=== PATIENT | male | born 1955 | race Caucasian/White ===

== ENCOUNTER 2023-11-13 09:26 | Emergency (ER) | payer OTHER, SELFPAY ==
[2023-11-13 09:30] VITALS: BP 104/79
[2023-11-13 09:32] LABS: Glucose - Point of Care 163 mg/dl (70-99)
--- NOTE | 2023-11-13 10:56 | ED.GENMED ---
History of Present Illness
General
Chief Complaint: Anxiety
Time Seen by Provider: 11/13/23 10:47
Travel History
Have you had any contact with someone who has COVID-19?: No
Do you have any symptoms of coronavirus? Fever > 100 degrees, chills, cough, shortness of breath, sore throat, loss of taste or smell, muscle aches, or headache?: No
History of Present Illness
History of Present Illness:
67-year-old male presents the emergency department for evaluation of 'seizures'. When asked to describe this the patient twitches his extremities and voluntarily and states 'see, that's a seizure'. He states ever since switching from cigarettes to
vaping he feels the symptoms are worsening. He also notes chronic bilateral lower extremity numbness that seems to be worsening. He currently does not have a primary care physician. Also notes that he was previously on chronic opioids and
benzodiazepines and stopped these within the past several months. Denies any suicidal or homicidal ideation
Review of Systems
Review of Systems
Allergies reviewed?: Yes
All Other Systems: ROS reviewed and negative except as documented in HPI and ROS
Phy Exam
Physical Exam
Physical Exam:
GEN: Well appearing, NAD, WDWN
Eyes: PERRLA, EOMs intact, no scleral icterus
HENT: NCAT, oral mucosa moist
Lungs: CTAB, no wheezes, rales, rhonchi, normal chest wall excursion
Cardiac: RRR, no M/R/G, no peripheral edema. Radial pulses 2+ bilat
Abdomen: S, NT, ND, NABS, no masses or hepatosplenomegaly
Neuro: AO x 3, no focal deficits to BUE/BLE. Patient appears tremulous, frequent twitching of the extremities appears to be voluntary
MSK: No gross deformity or ecchymosis.
Skin: No rashes, petechiae. Normal color, no pallor or jaundice.
Psych: Calm, cooperative, proper hygiene
Course
Orders/Labs/Results
Orders:
Orders
11/13/23 10:55
Electrocardiogram (*1) Urgent
Reason for Study: Fatigue / Weakness
EKG- Treatment ONCE
HydrOXYzine [Vistaril] 25 mg IM NOW STA
11/13/23 11:31
Complete Blood Count/With Diff Urgent
Comprehensive Metabolic Panel Urgent
11/13/23 12:34
Diazepam [Valium] 5 mg PO NOW STA
Abnormal Lab Results
11/13/23 11/13/23
09:31 11:31
WBC 11.0 H 10^3/uL
(4.8-10.8)
Absolute Neuts (auto) 7.2 H 10^3/uL
(1.4-6.5)
Absolute Monos (auto) 0.8 H 10^3/uL
(0.1-0.6)
BUN 23 H mg/dl
(9-20)
Glucose 131 H mg/dl
(70-99)
Total Bilirubin 1.8 H mg/dl
(0.2-1.3)
POC Glucose 163 H mg/dl
(70-99)
11/13/23 11:31
11/13/23 11:31
Vital Signs
Initial and Last Documented VS:
Initial Vital Signs
Temp Pulse Resp BP Pulse Ox
98.2 F 81 18 104/79 100
11/13/23 09:30 11/13/23 09:30 11/13/23 09:30 11/13/23 09:30 11/13/23 09:30
Last Documented Vital Signs
Temp Pulse Resp BP Pulse Ox
98.2 F 74 18 139/69 95
11/13/23 09:30 11/13/23 12:30 11/13/23 09:30 11/13/23 12:00 11/13/23 12:15
MDM/Problems Addressed
MDM/Problems Addressed:
Patient's workup was grossly unremarkable. Does not have any lateralizing deficits at this time. He is not displaying any objective sensory deficits of bilateral lower extremities. His twitching behavior does appear to be somewhat voluntary. He
does appear to be insistent on receiving benzodiazepines, small prescription provided as this may help to alleviate some of his symptoms. As far as the lower extremity neuropathic symptoms this may be diabetic neuropathy. Recommend he follow-up
with a family medicine residency clinic at the [facility]
*Critical Care Note
Total Time (30-74mins, 75-104mins- exclusive of procedures): Not Applicable
ED Attending Note
-
Portions of this chart may have been created with voice recognition software.� Occasional wrong word or��sound alike� substitutions may have occurred due to the inherent limitations of voice recognition software.
Discharge Plan
Departure
Patient Disposition: Home (Routine Discharge)
Date of Disposition: 11/13/23
Time of Disposition: 12:35
Patient with high blood pressure during this ER visit?: No
Discharge Problem:
Tremors of nervous system, Lower extremity neuropathy
Instructions: Tremor
Prescriptions:
New
diazepam 5 mg tablet
5 mg PO BID PRN (Reason: anxiety) Qty: 10 0RF
Referrals:
Krishna Ramon MD [Family Provider] -
Activity Restrictions/Additional Instructions:
[facility]
[address]
[place] [address]
[phone]
Interventions
Interventions:
*Risk Screen - Suicide Last Done: 11/13/23 09:30
*General Assessment Last Done: 11/13/23 09:30
*Neglect/Abuse Screening Last Done: 11/13/23 09:30
*ED COVID-19 Vaccine History Last Done: 11/13/23 09:30
*Nursing Disposition Last Done: 11/13/23 12:49
ED-Psychological Assessment Last Done: 11/13/23 10:30
Discharge Date and Time
Discharge Date/Time: 11/13/23 12:56
[2023-11-13 11:12] VITALS: BMI 19.3
[2023-11-13 11:25] VITALS: BP 127/66
--- NOTE | 2023-11-13 11:40 | EDRN ---
this ERRN attempted to administer ordered IM Med. the pt stated 'I am too scared to take something without knowing what it is.' this ROLLER MILL TENDER reviewed the medication information, uses, drug classes, side effects with this pt. the pt still refuses
ordered IM Hydroxyzine. ER NICKI Arriaga was notified of above
[2023-11-13 11:44] LABS: % Basophils 0.4 % (0-2); % Eosinophils 1.4 % (0-6); % Immature Granulocytes 0.2 % (0-0.5); % Lymphocytes 25.3 % (20.5-51.1); % Monocytes 7.3 % (1.7-9.3); % Neutrophils 65.4 % (42.2-75.2); Absolute Eosinophils 0.2 10^3/uL (0-0.7); Absolute Lymphocytes 2.8 10^3/uL (1.2-3.4); Absolute Monocytes 0.8 10^3/uL (0.1-0.6); Absolute Neutrophils 7.2 10^3/uL (1.4-6.5); Hematocrit 41.8 % (39.0-52.0); Mean Corp Hgb Conc. 35.9 g/dL (33.0-37.0); Mean Corpuscular Hgb 30.5 pg (27.0-31.0); Mean Corpuscular Volume 85.1 fL (80.0-94.0); Mean Platelet Volume 9.1 fL (7.4-10.4); Nucleated Red Blood Cells % 0 % (-); Platelet Count 266 10^3/uL (130-400); Red Blood Cell Count 4.91 10^6/uL (4.70-6.10); Red Cell Dist. Width 12.4 % (11.5-14.5)
[2023-11-13 11:58] LABS: ALT (SGPT) 27 U/L (0-50); AST (SGOT) 33 U/L (17-59); Albumin 4.7 g/dl (3.5-5.0); Alkaline Phosphatase 86 U/L (38-126); Blood Urea Nitrogen 23 mg/dl (9-20); Carbon Dioxide 26 mmol/L (22-30); Chloride 103 mmol/L (98-107); Estimated Creatinine Clearance 68 ml/min; Glucose 131 mg/dl (70-99); Potassium 4.7 mmol/L (3.5-5.1); Sodium 135 mmol/L (135-145); Total Bilirubin 1.8 mg/dl (0.2-1.3); Total Protein 7.7 g/dl (6.3-8.2); eGFR > 60.00
[2023-11-13 12:00] VITALS: BP 139/69
[2023-11-13] MEDS: VALIUM 5 MG PO (12:48)
== END 2023-11-13 12:56 | disposition home or self-care (01) ==
LOC: EMR 09:26
PROVIDERS: Physician Assistant; EMERGENCY PHYSICIAN Emergency Medicine; FAMILY PHYSICIAN Internal Medicine
DX: R25.1 Tremor, unspecified (principal); G57.93 Unspecified mononeuropathy of bilateral lower limbs
CPT/HCPCS: 99284; 96372; 80053; 82962; 85025; 93005

== ENCOUNTER 2024-06-15 15:53 | Inpatient (IN) | payer OTHER, SELFPAY ==
[2024-06-15] VITALS (12 sets, daily range): BP systolic 111–213; BP diastolic 56–122; BMI 23.9
--- NOTE | 2024-06-15 11:49 | ED.GENMED ---
ED Provider Triage
<Shiela Smith PA-C - Last Filed: 06/15/24 11:53>
-
Patient seen by provider in Triage?: Seen in Triage
Attestation: A medical screening examination has been initiated by a qualified medical provider. Based on the assessment performed at this time, it has been determined that an emergent medical condition may exist and the patient has been informed
that further medical evaluation and possible additional diagnostic testing may be needed.
HPI: 68yoM here with generalized weakness, SOB, pain all over x several months. Hx of diabetes, not on medications, has not checked sugar in several years. Has not seen PCP since 2021.
GENERAL: Alert , in no apparent distress
EYE: No visual abnormalities.
NECK: Trachea midline
ENT: No visible abnormalities.
LUNGS: No acute respiratory distress
NEUROLOGICAL: Alert and oriented
SKIN: Skin intact. No visible changes.
MUSCULOSKELETAL: Moving extremities normally
PSYCH: Normal and appropriate interaction.
This is a medical evaluation conducted in person to initiate diagnostic evaluation and provide initial therapeutics. Please see further documentation by the treating clinician.
Cardiac labs, magnesium, EKG, and CXR ordered.
History of Present Illness
<Shiela Smith PA-C - Last Filed: 06/15/24 11:53>
General
Chief Complaint: Weakness
Time Seen by Provider: 06/15/24 14:01
<Edmond Magaña PA-C - Last Filed: 06/15/24 14:45>
General
Source: patient
History of Present Illness
History of Present Illness:
68-year-old male with history of tqd-airtacz-kaclqcsse diabetes noncompliant also history of hypertension has not seen doctor in years presents with generalized weakness numbness to his bilateral feet and hands and excessive thirst. He denies
vision change she does feel that he is having trouble focusing at times. No chest pain. No shortness of breath. No fever. No other complaints at this time
Phy Exam
<Edmond Magaña PA-C - Last Filed: 06/15/24 14:45>
Physical Exam
Physical Exam:
General: Well-appearing male no acute respiratory distress
HEENT: Normocephalic atraumatic
Heart: Tachycardic but regular
Lungs: Clear no wheeze
Abdomen soft nontender nondistended no guarding or
Extremities: No cyanosis.
Course
<Shiela Smith PA-C - Last Filed: 06/15/24 11:53>
Orders/Labs/Results
Orders:
Orders
06/15/24 11:53
Electrocardiogram (*1) Urgent
Reason for Study: Shortness of Breath
EKG- Treatment ONCE
CR Chest - 2 Views Urgent
Comment:
Reason For Exam: SOB
06/15/24 11:59
Complete Blood Count/With Diff Urgent
Comprehensive Metabolic Panel Urgent
Magnesium Urgent
Troponin I Urgent
06/15/24 14:13
0.9% Sodium Chloride 1000 ml [Nss] 1,000 ml IV BOLUS
06/15/24 14:27
0.9% Sodium Chloride 1000 ml [Nss] 1,000 ml IV BOLUS
06/15/24 14:32
Insulin Human Regular [Novolin R] 7 units IV NOW STA
Labetalol HCl [Trandate] 10 mg IV NOW STA
Abnormal Lab Results
06/15/24 06/15/24
11:59 14:05
RBC 4.67 L 10^6/uL
(4.70-6.10)
Sodium 126 L mmol/L
(135-145)
Chloride 90 L mmol/L
(98-107)
BUN 33 H mg/dl
(9-20)
Glucose 809 H* mg/dl
(70-99)
ALT 55 H U/L
(0-50)
Alkaline Phosphatase 180 H U/L
(38-126)
POC Glucose > 600 H* mg/dl
(70-99)
06/15/24 11:59
06/15/24 11:59
Vital Signs
Initial and Last Documented VS:
Initial Vital Signs
Temp Pulse Resp BP Pulse Ox
97.5 F 94 20 162/105 100
06/15/24 11:47 06/15/24 11:47 06/15/24 11:47 06/15/24 11:47 06/15/24 11:47
Last Documented Vital Signs
Temp Pulse Resp BP Pulse Ox
98.5 F 102 20 213/122 98
06/15/24 14:09 06/15/24 14:11 06/15/24 14:11 06/15/24 14:09 06/15/24 14:11
<Edmond Magaña PA-C - Last Filed: 06/15/24 14:45>
Orders/Labs/Results
Orders:
Orders
06/15/24 11:53
Electrocardiogram (*1) Urgent
Reason for Study: Shortness of Breath
EKG- Treatment ONCE
CR Chest - 2 Views Urgent
Comment:
Reason For Exam: SOB
06/15/24 11:59
Complete Blood Count/With Diff Urgent
Comprehensive Metabolic Panel Urgent
Magnesium Urgent
Troponin I Urgent
06/15/24 14:13
0.9% Sodium Chloride 1000 ml [Nss] 1,000 ml IV BOLUS
06/15/24 14:27
0.9% Sodium Chloride 1000 ml [Nss] 1,000 ml IV BOLUS
06/15/24 14:32
Insulin Human Regular [Novolin R] 7 units IV NOW STA
Labetalol HCl [Trandate] 10 mg IV NOW STA
Abnormal Lab Results
06/15/24 06/15/24
11:59 14:05
RBC 4.67 L 10^6/uL
(4.70-6.10)
Sodium 126 L mmol/L
(135-145)
Chloride 90 L mmol/L
(98-107)
BUN 33 H mg/dl
(9-20)
Glucose 809 H* mg/dl
(70-99)
ALT 55 H U/L
(0-50)
Alkaline Phosphatase 180 H U/L
(38-126)
POC Glucose > 600 H* mg/dl
(70-99)
06/15/24 11:59
06/15/24 11:59
Vital Signs
Initial and Last Documented VS:
Initial Vital Signs
Temp Pulse Resp BP Pulse Ox
97.5 F 94 20 162/105 100
06/15/24 11:47 06/15/24 11:47 06/15/24 11:47 06/15/24 11:47 06/15/24 11:47
Last Documented Vital Signs
Temp Pulse Resp BP Pulse Ox
98.5 F 102 20 213/122 98
06/15/24 14:09 06/15/24 14:11 06/15/24 14:11 06/15/24 14:09 06/15/24 14:11
<Edmond Magaña PA-C - Last Filed: 06/15/24 14:45>
MDM/Problems Addressed
Differential Diagnosis Includes:
Patient with generalized weakness paresthesias excessive thirst. Consider hyperglycemia versus hypertension versus electrolyte abnormality
Labs demonstrate a serum glucose of 809 with pseudohyponatremia of 126. Blood pressure is 213/122. Patient has been noncompliant with his medicines the last 2 years. Will order IV fluids labetalol as well as IV insulin. Will admit to hospital
for hyperglycemia without acidosis and hypertension.
<Edmond Magaña PA-C - Last Filed: 06/15/24 14:45>
*Critical Care Note
Total Time (30-74mins, 75-104mins- exclusive of procedures): Not Applicable
ED Attending Note
<Shiela Smith PA-C - Last Filed: 06/15/24 11:53>
-
Portions of this chart may have been created with voice recognition software.� Occasional wrong word or��sound alike� substitutions may have occurred due to the inherent limitations of voice recognition software.
Discharge Plan
Departure
Patient Disposition: Admit
Date of Disposition: 06/15/24
Time of Disposition: 14:45
Admit to: Telemetry
Presentation/result/management discussed w/ accepting MD/DO: Hospitalist
Discharge Problem:
Hypertension
Prescriptions:
No Action
diazepam 5 mg tablet
5 mg PO BID PRN (Reason: anxiety) Qty: 10 0RF
Referrals:
NONE,* [Family Provider] -
Interventions
Interventions:
*Risk Screen - Suicide Last Done: 06/15/24 11:47
*General Assessment Last Done: 06/15/24 14:09
*Neglect/Abuse Screening Last Done: 06/15/24 11:47
ED- Fall Risk Assessment Last Done: 06/15/24 14:09
*ED COVID-19 Vaccine History Last Done: 06/15/24 11:47
ED- Cardiac Assessment Last Done: 06/15/24 14:09
ED- Neurological Assessment Last Done: 06/15/24 14:09
ED- Pulmonary Assessment Last Done: 06/15/24 14:09
Discharge Date and Time
Print Language: MALTESE
[2024-06-15 12:21] LABS: % Basophils 0.4 % (0-2); % Eosinophils 1.1 % (0-6); % Immature Granulocytes 0.3 % (0-0.5); % Lymphocytes 25.6 % (20.5-51.1); % Monocytes 7.8 % (1.7-9.3); % Neutrophils 64.8 % (42.2-75.2); Absolute Eosinophils 0.1 10^3/uL (0-0.7); Absolute Lymphocytes 1.9 10^3/uL (1.2-3.4); Absolute Monocytes 0.6 10^3/uL (0.1-0.6); Absolute Neutrophils 4.8 10^3/uL (1.4-6.5); Hemoglobin 13.7 g/dL (13.0-18.0); Mean Corp Hgb Conc. 34.3 g/dL (33.0-37.0); Mean Corpuscular Hgb 29.3 pg (27.0-31.0); Mean Corpuscular Volume 85.7 fL (80.0-94.0); Mean Platelet Volume 10.4 fL (7.4-10.4); Nucleated Red Blood Cells % 0 % (-); Platelet Count 252 10^3/uL (130-400); Red Blood Cell Count 4.67 10^6/uL (4.70-6.10); Red Cell Dist. Width 12.2 % (11.5-14.5); White Blood Cell Count 7.5 10^3/uL (4.8-10.8)
[2024-06-15 12:41] LABS: Troponin I < 0.012 ng/ml
[2024-06-15 12:45] LABS: ALT (SGPT) 55 U/L (0-50); AST (SGOT) 37 U/L (17-59); Alkaline Phosphatase 180 U/L (38-126); Blood Urea Nitrogen 33 mg/dl (9-20); Calcium 9.4 mg/dl (8.4-10.2); Carbon Dioxide 25 mmol/L (22-30); Chloride 90 mmol/L (98-107); Glucose 809 mg/dl (70-99); Potassium 5.1 mmol/L (3.5-5.1); Sodium 126 mmol/L (135-145); Total Bilirubin 0.7 mg/dl (0.2-1.3); Total Protein 6.7 g/dl (6.3-8.2); eGFR > 60.00
[2024-06-15 14:07] LABS: Glucose - Point of Care > 600 mg/dl (70-99)
--- NOTE | 2024-06-15 14:09 | EDRN ---
blood sugar was taken and was RR HIGH, per Dean CACERES, a venous glucose is not to be done yet
--- NOTE | 2024-06-15 14:11 | EDRN ---
Dean CACERES currently at the pts bedside, this RN found the pt drinking regular root beer, this RN notified the pt how high his blood sugar was when he came in
[2024-06-15] MEDS: NSS 1000 IV ×2 (14:20→14:27)
[2024-06-15] MEDS: NOVOLIN R 7 UNITS IV (14:45)
[2024-06-15] MEDS: TRANDATE 10 MG IV (14:50)
--- NOTE | 2024-06-15 14:53 | EDRN ---
Labetalol IV administered for the pts elevated blood pressure, Insulin IV administered, all per Dean CACERES's orders
--- NOTE | 2024-06-15 15:08 | HPS.HSE ---
Family Physician
-
Family Physician: * NONE
Chief Complaint
-
Weakness
History of Present Illness
Patient is a 68-year-old male with PHM of NIDDM and Hypertension who states he has not seen a doctor in over 2 years. He was diagnosed with DMII in 2013, initially followed a good diet and exercise and stopped prescribed medication on his own
stating his sugars were controlled. Patient presented to [facility] with c/o weakness and having feeling of severe dizziness every time he moved. He reports this has been the norm for months and he finally decided he should find out what was
going on. He confirms that dizziness was accompanied by nausea and feeling of near syncope. He denies any fever, chills, cough, shortness of breath, chest pain, vomiting, constipation, diarrhea or urinary symptoms.
Medical History
Past Medical History
Past Medical History: Reports Other
Additional Past Medical History:
NIDDM
HTN
Past Surgical History: Reports None
Social History
Tobacco: Vaping (1-2 years)
Alcohol: Former (many years since he stopped drinking)
Drug: Former User (quit multiple recreational drugs years ago, did state he had extensive abuse of cocaine)
Personal: Single
Living: With Family
Employment: Not Employed
Family History
Family History: Not pertinent
Allergies / Home Medications
Allergies reflects when Allergies were last updated in [employer].
Home Medications with original date entered in [employer]
Allergy/Medication List:
Allergies
Allergy/AdvReac Type Severity Reaction Status Date / Time
No Known Allergies Allergy Verified 06/15/24 11:53
Home Medications Table - record
�Medication �Instructions �Recorded �Confirmed
pseudoephedrine HCl 30 mg tablet 30 mg PO DAILYPRN PRN post nasal 06/15/24 06/15/24
(Sudafed) drip
telmisartan 80 mg tablet 80 mg PO DAILYPRN PRN high blood 06/15/24 06/15/24
pressure
Review of Systems
-
History Source: Patient
Constitutional: Reports Other (generalized weakness, dizziness)
EENT: Reports No Symptoms
Respiratory: Reports No Symptoms
Cardiac: Reports No Symptoms
Abdomen/GI: Reports Nausea
: Reports No Symptoms
Musculoskeletal: Reports No Symptoms
Skin: Reports No Symptoms
Neurological: Reports Dizzy and Weakness
Endocrine: Reports No Symptoms
Hematologic/Lymphatic: Reports No Symptoms
Psych: Reports No Symptoms
Physical Exam
Vital Signs
Vital Signs
Temp Pulse Resp BP Pulse Ox
98.5 F 83 20 179/93 98
06/15/24 14:09 06/15/24 14:50 06/15/24 14:11 06/15/24 14:50 06/15/24 14:11
Physical Exam
General: Well Developed, Well Nourished, No Apparent Distress, Comfortable and Conversant
HEENT: NormoCephalic, Moist mucous membranes, Atraumatic, PERRLA, [place] Conjunctivae, Nose Appears Normal and Ears Appear Normal
Respiratory: Clear and Non Labored Respirations; No Wheezes, Rales, Rhonchi or Crackles
Cardiac: S1/S2 and Regular Rhythm; No Murmur, Rub or Gallop
Breast: Deferred by me
GI: Soft, Non Tender, Non Distended and Normal Bowel Sounds; No Organomegaly
Rectal: Deferred by Provider
Genito-urinary: Deferred by me
Musculoskeletal: No Clubbing, No Cyanosis and No Edema
Skin: Warm, Dry and IV/Catheter Site; No Rash
Neuro: Awake, Alert, AO x 3, Nonfocal/grossly intact and Cranial Nerves Intact
Hematologic/Lymphatic: No Lymphadenopathy
Psych: Calm
Laboratory Results
-
06/15/24 11:59
06/15/24 11:59
Laboratory Results
Total Bilirubin 0.7 mg/dl (0.2-1.3) 06/15/24 11:59
AST 37 U/L (17-59) 06/15/24 11:59
ALT 55 U/L (0-50) H 06/15/24 11:59
Alkaline Phosphatase 180 U/L (38-126) H 06/15/24 11:59
Troponin I < 0.012 ng/ml 06/15/24 11:59
Data Reviewed
-
Lab Data: Labs Reviewed by me (Glucose 809, Na+ 126)
Impression/Plan
-
IMPRESSION/PLAN:
#NIDDM
- Glucose 809
- Consult DM educator
- Start Lantus 10 units HS
- SSI with accuchecks
- Monitor BMP
#Hypertension
- Continue Telmisartan daily
#Nicotine dependency
- Encouraged cessation
- effects all aspects of care
DNR
DVT Px: SCDs
[2024-06-15 15:16] LABS: Glucose - Point of Care 417 mg/dl (70-99)
--- NOTE | 2024-06-15 15:24 | EDRN ---
blood glucose checked and was RR HIGH, this RN bismark and send a venous glucose
--- NOTE | 2024-06-15 15:24 | EDRN ---
Hospitalist currently a the pts bedside
[2024-06-15 15:27] LABS: Urine Albumin Negative (Neg - Trace); Urine Bilirubin Negative (Negative); Urine Character Clear (Clear); Urine Color Yellow; Urine Glucose 3+ (Negative); Urine Ketone Negative (Negative); Urine Leukocyte Negative (Negative); Urine Nitrite Negative (Negative); Urine Occult Blood Negative (Negative); Urine Urobilinogen Negative (Neg - 1+)
[2024-06-15 15:44] LABS: Glucose 271 mg/dl (70-99)
--- NOTE | 2024-06-15 15:58 | W.PN.UPDATE ---
Addendum entered and electronically signed by Selin Walters MD 06/15/24 22:44:
Blood sugar down to 47 but now back to 247. Will give Lantus 10 units daily.
Original Note:
Update Note
Progress Note Update
This is an addendum to the H&P written by Helene Adam on 06/15/2024.� Patient seen and examined independently with MEDICAL CODING AUDITOR.
68-year-old male past medical history of diabetes, hypertension presenting with numbness of bilateral feet and hands and excessive thirst.
Blood pressure as high as 213/122.� Blood sugar of 800.� Pseudohyponatremia from hyperglycemia.� Labs otherwise unremarkable without metabolic acidosis and anion gap of 11.
Presentation consistent with hyperosmolar hyperglycemic syndrome.� Blood sugar improving to 400 after 7 units IV Humulin given.� Diabetic diet, IV fluids with normal saline given.� Start Lantus 10 units.� Check A1c.
Also with hypertensive urgency.� Blood pressure completely improved.� Resume telmisartan 80 mg daily.
[2024-06-15 16:30] LABS: Glucose - Point of Care 47 mg/dl (70-99)
[2024-06-15 16:30] LABS: Glucose - Point of Care 50 mg/dl (70-99)
[2024-06-15] MEDS: DEXTROSE 50% SYRINGE 12.5 GRAMS IV (16:36)
--- NOTE | 2024-06-15 16:38 | EDRN ---
this RN checked the pts blood sugar and it was 47, this RN then rechecked the pts blood sugar and it was 50, per providers orders Dextrose IV was administered, no c/o dizziness, no diaphoresis, VS WNL, will continue to monitor the pt closely
[2024-06-15 16:53] LABS: Glucose - Point of Care 195 mg/dl (70-99)
--- NOTE | 2024-06-15 16:54 | EDRN ---
this RN rechecked the pts blood sugar and it is now 195, provider notified, VS WNL, no complaints offered, will continue to monitor the pt closely
[2024-06-15 17:15] LABS: Glucose - Point of Care 217 mg/dl (70-99)
--- NOTE | 2024-06-15 17:15 | EDRN ---
the pts blood sugar was checked again and was 217, provider notified
--- NOTE | 2024-06-15 17:25 | EDRN ---
this RN called the receiving unit and notified them that paper report was going to be tubed up
[2024-06-15] MEDS: NOVOLOG FLEXPEN-MODERATE RESISTANCE SC (18:16)
[2024-06-15 18:18] LABS: Glucose - Point of Care 79 mg/dl (70-99)
--- NOTE | 2024-06-15 18:30 | PTCARENOTE ---
Received patient from ED via stretcher. AAOx3, assisted to bed. Assessed and oriented to room. Patient ordered DNR but states he would like to be a full code. Code status changed by Nurse Practitioner . Accu check 79. Orders to hold 1800 Lantus by
Nurse Practitioner. Call caballero in close reach.
[2024-06-15 19:41] LABS: Glucose - Point of Care 256 mg/dl (70-99)
[2024-06-15 20:55] LABS: Glucose - Point of Care 274 mg/dl (70-99)
[2024-06-15 21:33] LABS: Glucose - Point of Care 297 mg/dl (70-99)
[2024-06-15 23:01] LABS: Glucose - Point of Care 315 mg/dl (70-99)
--- NOTE | 2024-06-15 23:10 | PTCARENOTE ---
pt stated that he felt warm, lightheaded, sob, stuffy, thirsty, and has blurred vision. pt states this has been going on for awhile. at night he has been sleeping in a sun room where it gets really cold, and taking the occasional Sudafed. Oxygen is
95% on room air. pt stating 'he can't breathe' - placed on 1L of for comfort. pt is flush, but temp =98.3, zk=583/64, p=77. provided pt with cool wash clothe and ice pack. blood [id number] (had finished dinner about 30mins ago.) pt denies having the
flu or covid, but never tested. pt constantly going to the bathroom - bladder scan post void residual 30ml. informed COVERING MACHINE OPERATOR Hephziba- obtained order for lantus , and nasal spray.
pt stated that he felt the same throughout the night. accuchecks obtained, and COVERING MACHINE OPERATOR updated.
[2024-06-15] MEDS: OCEAN, SALINE MIST 2 SPRAYS NASAL (23:48)
[2024-06-15] MEDS: LANTUS 0.1 UNITS SC (23:48)
[2024-06-15 23:51] LABS: Glucose - Point of Care 296 mg/dl (70-99)
[2024-06-16 02:45] LABS: Glucose - Point of Care 249 mg/dl (70-99)
[2024-06-16 05:44] LABS: Glucose - Point of Care 262 mg/dl (70-99)
[2024-06-16 06:57] LABS: Glucose - Point of Care 249 mg/dl (70-99)
[2024-06-16 07:10] VITALS: BP 105/71
[2024-06-16] MEDS: NOVOLOG FLEXPEN-MODERATE RESISTANCE SC (07:30)
[2024-06-16 09:09] LABS: Hematocrit 35.6 % (39.0-52.0); Hemoglobin 12.4 g/dL (13.0-18.0); Mean Corp Hgb Conc. 34.8 g/dL (33.0-37.0); Mean Corpuscular Hgb 29.3 pg (27.0-31.0); Mean Corpuscular Volume 84.2 fL (80.0-94.0); Mean Platelet Volume 10.2 fL (7.4-10.4); Platelet Count 239 10^3/uL (130-400); Red Blood Cell Count 4.23 10^6/uL (4.70-6.10); Red Cell Dist. Width 12.2 % (11.5-14.5); White Blood Cell Count 10.2 10^3/uL (4.8-10.8)
[2024-06-16] MEDS: COZAAR 100 MG PO (09:11)
[2024-06-16 09:36] LABS: Troponin I < 0.012 ng/ml
[2024-06-16 10:56] LABS: Glycohemoglobin (HgbA1c) 14.6 % (4.0-5.6)
[2024-06-16 10:59] LABS: Glucose - Point of Care 273 mg/dl (70-99)
[2024-06-16] MEDS: NOVOLOG FLEXPEN 2 UNITS SC (11:00)
[2024-06-16] MEDS: NOVOLOG FLEXPEN-MODERATE RESISTANCE 5 UNITS SC ×2 (11:00→16:47)
[2024-06-16 11:32] LABS: Blood Urea Nitrogen 18 mg/dl (9-20); Calcium 8.9 mg/dl (8.4-10.2); Carbon Dioxide 24 mmol/L (22-30); Chloride 99 mmol/L (98-107); Estimated Creatinine Clearance 87 ml/min; Glucose 242 mg/dl (70-99); Potassium 4.6 mmol/L (3.5-5.1); Sodium 133 mmol/L (135-145); eGFR > 60.00
[2024-06-16 11:47] LABS: Glucose - Point of Care 369 mg/dl (70-99)
--- NOTE | 2024-06-16 12:03 | PN.DE ---
Diabetes Education
- -
06/16/2024 Diabetes EDUCATION Consult
Patient admitted 06/15 with numbness of feet and hands and extreme thirst. PMH HTN, diabetes taking no medication. recreational multiple drug use including cocaine.
Patient is awake alert and oriented but very agitated. Picking at everything, spilled water on bedside table and bed, emptying water into basin. Hyper-focused on wanting to have a meal. He states he is dehydrated and needs food.
Reassured him as soon as appropriate he would be able to have a meal.
I attempted to teach patient a meter but he really could not focus on the steps. I demonstrated each step. I will return tomorrow to instruct on steps to test, times to test and target range.
Discussed with patients nurse.
Will follow to reinforce meter use.
[2024-06-16 15:08] LABS: Glucose - Point of Care 389 mg/dl (70-99)
[2024-06-16 15:12] VITALS: BP 114/55
[2024-06-16] MEDS: NOVOLOG FLEXPEN 12 UNITS SC (15:25)
--- NOTE | 2024-06-16 16:29 | W.PN.HOSP.TC ---
Today's Communication/Plan
-
needs placement
as long as sugars are ok can leave tomorrow
Assessment / Plan
Assessment / Plan
61 with diabetes and hypertension with weakness dizziness was found to have bradycardia hyper pressure and also sugars over 800
CVS: S1-S2 normal
Chest: CTA B/L
Abdomen: Soft, NT / Bowel sounds present
Extremities: No edema, normal pulses
SAUSAGE MAKER: Non focal exam
# Diabetes-not on any meds at present
Glucose was over 800 on admission consistent with hyperosmolar hyperglycemic state
Diabetic education and dietary consultation
Lantus and NovoLog insulin. 15 units and 8 units AC respectively
Hemoglobin A1c 14.6
Accu-Cheks and sliding scale coverage
# Hypertension with hypertensive urgency on admission
Telmisartan to be continued
It appears patient was taking as needed
Pseudoephedrine could have also raise her blood pressure as outpatient
# Pseudo hypernatremia secondary to hyperglycemia
# Elevated LFTs-repeat
# T inversion in inferior leads. Troponin negative .Get one more set. OP ECHO
# Nicotine dependency with vaping cessation counseling
# History of migraines
# DVT prophylaxis-Lovenox
# Full code
D/W Case management
Anticipated Discharge: Within 24 hours
Subjective/Interval History
-
Date of Service: June 16, 2024
Objective Data
-
Labs:
Laboratory Results
06/16/24
08:17
WBC 10.2
Hgb 12.4 L
Hct 35.6 L
Plt Count 239
Sodium 133 L
Potassium 4.6
Chloride 99
Carbon Dioxide 24
BUN 18
Creatinine 0.8
Glucose 242 H
Calcium 8.9
Vital Signs:
Vital Signs
Temp Pulse Resp BP Pulse Ox
98.3 F 69 18 114/55 97
06/16/24 15:12 06/16/24 15:12 06/16/24 15:12 06/16/24 15:12 06/16/24 15:12
I&O
06/15/24 06/16/24 06/17/24
06:59 06:59 06:59
Intake Total 1360 / 1360
Balance 1360 / 1360
[2024-06-16 16:35] LABS: Glucose - Point of Care 250 mg/dl (70-99)
[2024-06-16] MEDS: GLUCOPHAGE 850 MG PO (16:46)
[2024-06-16] MEDS: NOVOLOG FLEXPEN 8 UNITS SC (16:47)
[2024-06-16 19:32] LABS: Glucose - Point of Care 119 mg/dl (70-99)
[2024-06-16 21:43] LABS: Glucose - Point of Care 103 mg/dl (70-99)
[2024-06-16 23:54] VITALS: BP 117/54
--- NOTE | 2024-06-17 06:33 | W.PN.UPDATE ---
Update Note
Progress Note Update
Reported by the nursing staff that the patient in the hallway, refusing to go inside his room, stating that he in a panic attack, and requesting Valium. Went to assess the patient, he is sitting on a chair in the front of his room crossing his
legs, no signs of anxiety/ fear/ no tremors/ no sweating. Patient looks calm. Vital signs within normal limits including heart rate. Patient able to hold conversation with no problem, stating the he in panic attack/ need to sleep and requesting
Valium. This documentation writer offered melatonin, but the patient refused.
[2024-06-17 07:43] LABS: Glucose - Point of Care 239 mg/dl (70-99)
[2024-06-17 07:48] LABS: Hematocrit 36.6 % (39.0-52.0); Hemoglobin 12.5 g/dL (13.0-18.0); Mean Corp Hgb Conc. 34.2 g/dL (33.0-37.0); Mean Corpuscular Hgb 28.6 pg (27.0-31.0); Mean Corpuscular Volume 83.8 fL (80.0-94.0); Mean Platelet Volume 9.6 fL (7.4-10.4); Platelet Count 245 10^3/uL (130-400); Red Blood Cell Count 4.37 10^6/uL (4.70-6.10); Red Cell Dist. Width 12.6 % (11.5-14.5); White Blood Cell Count 9.7 10^3/uL (4.8-10.8)
[2024-06-17 07:52] VITALS: BP 123/59
[2024-06-17 08:18] LABS: Blood Urea Nitrogen 18 mg/dl (9-20); Calcium 9.1 mg/dl (8.4-10.2); Carbon Dioxide 26 mmol/L (22-30); Chloride 101 mmol/L (98-107); Estimated Creatinine Clearance 87 ml/min; Glucose 218 mg/dl (70-99); Magnesium 2.1 mg/dl (1.6-2.3); Potassium 4.9 mmol/L (3.5-5.1); Sodium 135 mmol/L (135-145); eGFR > 60.00
[2024-06-17] MEDS: NOVOLOG FLEXPEN-MODERATE RESISTANCE 3 UNITS SC ×2 (08:33→12:17)
[2024-06-17] MEDS: GLUCOPHAGE 850 MG PO ×2 (08:33→18:37)
[2024-06-17] MEDS: COZAAR PO (08:37)
[2024-06-17] MEDS: NOVOLOG FLEXPEN SC ×2 (08:44→18:29)
[2024-06-17 08:58] LABS: Vitamin B12 529 pg/ml (239-931)
[2024-06-17 10:59] LABS: Glucose - Point of Care 235 mg/dl (70-99)
--- NOTE | 2024-06-17 11:13 | W.PN.HOSP.TC ---
Today's Communication/Plan
-
placement
insulin adjusted.
Assessment / Plan
Assessment / Plan
61 with diabetes and hypertension with weakness dizziness was found to have bradycardia hyper pressure and also sugars over 800
CVS: S1-S2 normal
Chest: CTA B/L
Abdomen: Soft, NT / Bowel sounds present
Extremities: No edema, normal pulses
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
He C/O Mild dizziness - likely from sugars . Check orthostatics
# Diabetes-not on any meds at present
Glucose was over 800 on admission consistent with hyperosmolar hyperglycemic state
Diabetic education and dietary consultation
Lantus and NovoLog insulin. 20 units and 8 units AC respectively
Hemoglobin A1c 14.6
Accu-Cheks and sliding scale coverage
# Hypertension with hypertensive urgency on admission
Telmisartan to be continued
It appears patient was taking as needed
Pseudoephedrine could have also raise her blood pressure as outpatient
# Pseudo hypernatremia secondary to hyperglycemia
# Elevated LFTs-repeat
# T inversion in inferior leads. Troponin negative . Check echo
# Nicotine dependency with vaping cessation counseling
# History of migraines
# DVT prophylaxis-Lovenox
# Full code
D/W RN
Called brother went to message
D/W Case management
Anticipated Discharge: Within 24 hours
Subjective/Interval History
-
Date of Service: June 17, 2024
Objective Data
-
Labs:
Laboratory Results
06/17/24
07:29
WBC 9.7
Hgb 12.5 L
Hct 36.6 L
Plt Count 245
Sodium 135
Potassium 4.9
Chloride 101
Carbon Dioxide 26
BUN 18
Creatinine 0.8
Glucose 218 H
Calcium 9.1
Vital Signs:
Vital Signs
Temp Pulse Resp BP Pulse Ox
98.1 F 70 18 123/59 97
06/17/24 07:52 06/17/24 07:52 06/17/24 07:52 06/17/24 07:52 06/17/24 07:52
I&O
06/16/24 06/17/24 06/18/24
06:59 06:59 06:59
Intake Total 1360 / 1360 1200 / 1200
Balance 1360 / 1360 1200 / 1200
[2024-06-17 11:22] VITALS: BP 111/61; BP 130/56; BP 87/54; PULSE 82; PULSE 88; PULSE 93
[2024-06-17 11:46] LABS: Glucose - Point of Care 228 mg/dl (70-99)
[2024-06-17 11:56] LABS: ALT (SGPT) 50 U/L (0-50); AST (SGOT) 41 U/L (17-59); Albumin 3.4 g/dl (3.5-5.0); Alkaline Phosphatase 106 U/L (38-126); Direct Bilirubin 0.2 mg/dl (0.0-0.4); Total Bilirubin 0.8 mg/dl (0.2-1.3); Total Protein 6.1 g/dl (6.3-8.2)
[2024-06-17] MEDS: NSS 250 IV (12:09)
[2024-06-17] MEDS: NOVOLOG FLEXPEN 8 UNITS SC (12:17)
[2024-06-17 15:22] VITALS: BP 105/66
--- NOTE | 2024-06-17 16:15 | CM ---
CM met with Jann and his brother this afternoon to discuss transfer to SNF. [facility] in [place] [facility] offered admission; financial information will be required, however per Jann's brother, there are
no assets and Jann has not filed a tax return in many years, if ever. Jann's home was sold at [place] and he used the money to stay at a motel until the money ran out.
CM to follow up with [facility] and [facility] in [place]. Jann's brother is taking the car home with him; Jann is aware and agreeable to this.
Plan: SNF transfer with terminal block assembler care pending financial review
[2024-06-17 16:48] LABS: Glucose - Point of Care 112 mg/dl (70-99)
[2024-06-17] MEDS: NOVOLOG FLEXPEN-MODERATE RESISTANCE SC (16:58)
[2024-06-17 18:08] VITALS: BP 123/60; BP 128/61; BP 95/60; PULSE 88; PULSE 91; PULSE 92
[2024-06-17] MEDS: NOVOLOG FLEXPEN 6 UNITS SC (18:38)
[2024-06-17 21:33] LABS: Glucose - Point of Care 133 mg/dl (70-99)
[2024-06-17] MEDS: LANTUS 0.2 UNITS SC (22:20)
[2024-06-17 23:27] VITALS: BP 129/64
[2024-06-18 03:58] LABS: Glucose - Point of Care 98 mg/dl (70-99)
[2024-06-18 07:10] VITALS: BP 128/69
[2024-06-18 07:10] LABS: Glucose - Point of Care 91 mg/dl (70-99)
[2024-06-18 08:16] LABS: Hematocrit 37.1 % (39.0-52.0); Hemoglobin 12.6 g/dL (13.0-18.0); Mean Corpuscular Hgb 29.2 pg (27.0-31.0); Mean Corpuscular Volume 86.1 fL (80.0-94.0); Mean Platelet Volume 10.1 fL (7.4-10.4); Platelet Count 221 10^3/uL (130-400); Red Blood Cell Count 4.31 10^6/uL (4.70-6.10); Red Cell Dist. Width 12.5 % (11.5-14.5); White Blood Cell Count 8.5 10^3/uL (4.8-10.8)
[2024-06-18 09:12] LABS: Blood Urea Nitrogen 19 mg/dl (9-20); Calcium 9.1 mg/dl (8.4-10.2); Carbon Dioxide 27 mmol/L (22-30); Chloride 103 mmol/L (98-107); Estimated Creatinine Clearance 77 ml/min; Glucose 88 mg/dl (70-99); Potassium 4.2 mmol/L (3.5-5.1); Sodium 138 mmol/L (135-145); eGFR > 60.00
[2024-06-18] MEDS: NOVOLOG FLEXPEN 8 UNITS SC (09:16)
[2024-06-18] MEDS: COZAAR PO ×2 (09:17→09:27)
[2024-06-18] MEDS: GLUCOPHAGE 850 MG PO ×2 (09:17→17:29)
[2024-06-18] MEDS: NOVOLOG FLEXPEN-MODERATE RESISTANCE SC ×3 (09:17→17:29)
[2024-06-18] MEDS: FLUSH (NSS) 1 FLUSH IV (09:18)
--- NOTE | 2024-06-18 09:34 | PTCARENOTE ---
reviewed insulin ordered for this morning- offered to instruct patient on self administration- patient refused, stating 'I am going to a place , I'll do it there' patient doesn't think he needs insulin. reviewed HGBA1C results and brief explanation
of result given to patient. patient still feels he doesn't need to take insulin. plan of care on going
[2024-06-18 11:44] LABS: Glucose - Point of Care 79 mg/dl (70-99)
[2024-06-18] MEDS: NOVOLOG FLEXPEN 4 UNITS SC ×2 (12:39→17:29)
--- NOTE | 2024-06-18 14:45 | W.PN.HOSP.TC ---
Today's Communication/Plan
-
Medically stable for discharge to rehab
Assessment / Plan
Assessment / Plan
61 with diabetes and hypertension with weakness dizziness was found to have bradycardia hyper pressure and also sugars over 800
CVS: S1-S2 normal
Chest: CTA B/L
Abdomen: Soft, NT / Bowel sounds present
Extremities: No edema, normal pulses
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
He C/O Mild dizziness - likely from sugars . Check orthostatics
# Diabetes-not on any meds at present
Glucose was over 800 on admission consistent with hyperosmolar hyperglycemic state
Diabetic education and dietary consultation
Lantus and NovoLog insulin. 20 units and 4 units AC respectively
Hemoglobin A1c 14.6
Accu-Cheks and sliding scale coverage
# Hypertension with hypertensive urgency on admission
Telmisartan to be continued
It appears patient was taking as needed
Pseudoephedrine could have also raise her blood pressure as outpatient
# Pseudo hypernatremia secondary to hyperglycemia
# Elevated LFTs-repeat
# T inversion in inferior leads. Troponin negative . echo unremarkable
# Nicotine dependency with vaping cessation counseling
# Neuropathy likely diabetic-add Neurontin
# History of migraines
# DVT prophylaxis-Lovenox
# Full code
D/W RN
D/W Brother and updated
D/W Case management
Anticipated Discharge: Within 24 hours
Subjective/Interval History
-
Date of Service: June 18, 2024
Objective Data
-
Labs:
Laboratory Results
06/18/24
07:11
WBC 8.5
Hgb 12.6 L
Hct 37.1 L
Plt Count 221
Sodium 138
Potassium 4.2
Chloride 103
Carbon Dioxide 27
BUN 19
Creatinine 0.9
Glucose 88
Calcium 9.1
Vital Signs:
Vital Signs
Temp Pulse Resp BP Pulse Ox
97.9 F 69 20 128/69 100
06/18/24 07:10 06/18/24 07:10 06/18/24 07:10 06/18/24 07:10 06/18/24 07:10
I&O
06/17/24 06/18/24 06/19/24
06:59 06:59 06:59
Intake Total 1200 / 1200 2160 / 2160
Output Total 450 / 450
Balance 1200 / 1200 1710 / 1710
[2024-06-18 14:55] LABS: Glucose - Point of Care 96 mg/dl (70-99)
[2024-06-18 15:19] VITALS: BP 127/61
[2024-06-18] MEDS: NEURONTIN 100 MG PO ×2 (17:28→21:55)
[2024-06-18 21:50] LABS: Glucose - Point of Care 99 mg/dl (70-99)
[2024-06-18] MEDS: LANTUS SC (21:54)
[2024-06-18] MEDS: MELATONIN 5 MG PO (22:03)
[2024-06-18 23:44] VITALS: BP 127/59
[2024-06-19 03:00] VITALS: BP 113/64
--- NOTE | 2024-06-19 06:25 | W.PN.HOSP.TC ---
Today's Communication/Plan
-
Increase Gabapentin to 200 mg TID
glycemic control
valium 2mg BID
gentle IVF hydration 50 cc/h
PT/OT eval
Assessment / Plan
Assessment / Plan
Physical Exam
General: no acute distress, appears comfortable at this time though patient's report is contrary to appearance
CVS: S1-S2 normal
Chest: CTA B/L
Abdomen: Soft, NT / Bowel sounds present
Extremities: No edema, normal pulses
WATER OPERATOR: AOx3
Psych: patient reports insomnia general anxiety panic attacks. Seems to be obsessively concern regarding dehydration though labs vitals do not correlate with subjective concern
61 with diabetes and hypertension with weakness dizziness was found to have bradycardia hyper pressure and also sugars over 800
He C/O Mild dizziness - likely from sugars . Check orthostatics
# Diabetes-not on any meds at present
Glucose was over 800 on admission consistent with hyperosmolar hyperglycemic state
Diabetic education and dietary consultation
Lantus and NovoLog insulin. 20 units and 4 units AC respectively
Hemoglobin A1c 14.6
Accu-Cheks and sliding scale coverage
# Hypertension with hypertensive urgency on admission
Telmisartan to be continued
It appears patient was taking as needed
Pseudoephedrine could have also raise her blood pressure as outpatient
BP well controlled at this time with Losartan 100 mg daily
#patient reporting muscle spasticity, panic attacks, generalized anxiety,
start valium 2mg BID
# Pseudo hyponatremia secondary to hyperglycemia- resolved
# Elevated LFTs- resolved
# T inversion in inferior leads. Troponin negative . echo unremarkable
# Nicotine dependency with vaping cessation counseling
# Neuropathy likely diabetic-added Neurontin titrated up to 200 mg TID
# History of migraines
PT/OT
# DVT prophylaxis-Lovenox
# Full code
I spent a total of 40 minutes with the patient or on the floor. More than 50% of this time involved counseling and coordination of care.
Anticipated Discharge: 24 - 48 hours
Subjective/Interval History
-
Date of Service: June 19, 2024
reporting spasticity generalized body-aches and burning sensation. Otherwise appears relatively comfortable at rest. Reports significant concern for dehydration though labs vitals don't seem to support patient's subjective concern.
Objective Data
-
Vital Signs:
Vital Signs
Temp Pulse Resp BP Pulse Ox
97.9 F 68 18 127/59 98
06/18/24 23:44 06/18/24 23:44 06/18/24 23:44 06/18/24 23:44 06/18/24 23:44
I&O
06/17/24 06/18/24 06/19/24
06:59 06:59 06:59
Intake Total 1200 / 1200 2160 / 2160 1080 / 1080
Output Total 450 / 450
Balance 1200 / 1200 1710 / 1710 1080 / 1080
[2024-06-19 07:31] LABS: Glucose - Point of Care 132 mg/dl (70-99)
[2024-06-19] MEDS: NOVOLOG FLEXPEN-MODERATE RESISTANCE SC ×2 (07:39→12:26)
[2024-06-19 07:55] VITALS: BP 116/59
[2024-06-19] MEDS: GLUCOPHAGE 850 MG PO ×2 (09:27→17:58)
[2024-06-19] MEDS: NEURONTIN 100 MG PO (09:28)
[2024-06-19] MEDS: NOVOLOG FLEXPEN 4 UNITS SC ×3 (09:29→17:59)
[2024-06-19] MEDS: COZAAR PO (09:30)
[2024-06-19 12:22] LABS: Glucose - Point of Care 130 mg/dl (70-99)
[2024-06-19 15:00] VITALS: BP 113/64
[2024-06-19] MEDS: NEURONTIN 200 MG PO ×2 (16:10→21:58)
[2024-06-19] MEDS: NSS 1000 IV (16:24)
[2024-06-19 17:18] LABS: Glucose - Point of Care 156 mg/dl (70-99)
[2024-06-19] MEDS: NOVOLOG FLEXPEN-MODERATE RESISTANCE 1 UNITS SC (17:59)
[2024-06-19 21:42] LABS: Glucose - Point of Care 175 mg/dl (70-99)
[2024-06-19] MEDS: VALIUM 2 MG PO (21:57)
[2024-06-19] MEDS: LANTUS 0.2 UNITS SC (21:58)
[2024-06-19 23:46] VITALS: BP 137/71
--- NOTE | 2024-06-20 07:12 | W.PN.HOSP.TC ---
Today's Communication/Plan
-
cont blood pressure control
glycemic control
ST/PT/OT
trial IVF
valium switched to 5 mg Bedtime
Assessment / Plan
Assessment / Plan
Physical Exam
General: no acute distress, appears comfortable at this time though patient's report is contrary to appearance
CVS: S1-S2 normal
Chest: CTA B/L
Abdomen: Soft, NT / Bowel sounds present
Extremities: No edema, normal pulses
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
Psych: patient reports insomnia general anxiety. Seems to be obsessively concern regarding dehydration though labs vitals exam do not correlate with subjective concern
61 with diabetes and hypertension with weakness dizziness was found to have bradycardia hyper pressure and also sugars over 800
He C/O Mild dizziness - likely from sugars . Check orthostatics
# Diabetes-not on any meds at present
Glucose was over 800 on admission consistent with hyperosmolar hyperglycemic state
Diabetic education and dietary consultation
Lantus and NovoLog insulin. 20 units and 4 units AC respectively
Hemoglobin A1c 14.6
Accu-Cheks and sliding scale coverage
# Hypertension with hypertensive urgency on admission
Telmisartan to be continued
It appears patient was taking as needed
Pseudoephedrine could have also raise her blood pressure as outpatient
BP well controlled at this time with Losartan 100 mg daily
#patient reporting muscle spasticity, generalized anxiety, insomnia
#seems obsessively concerned with dehydration
on trial IVF rate increased to 100 cc/h
started valium 2mg BID switched to 5 mg HS
# Pseudo hyponatremia secondary to hyperglycemia- resolved
# Elevated LFTs- resolved
# T inversion in inferior leads. Troponin negative . echo unremarkable
# Nicotine dependency with vaping cessation counseling
# Neuropathy likely diabetic-added Neurontin titrated up to 200 mg TID
# History of migraines
PT/OT appreciated SNF rehab
ST eval cognitive assessment requested
# DVT prophylaxis-Lovenox
# Full code
I spent a total of 40 minutes with the patient or on the floor. More than 50% of this time involved counseling and coordination of care.
Anticipated Discharge: 24 - 48 hours
Subjective/Interval History
-
Date of Service: June 20, 2024
No acute distress appears comfortable at rest. Continues to perseverate concerns dehydration despite on IVF. Endorses some improvement in spasticity burning sensations.
Objective Data
-
Labs:
Laboratory Results
06/20/24
06:31
WBC Pending
Hgb Pending
Hct Pending
Plt Count Pending
Sodium Pending
Potassium Pending
Chloride Pending
Carbon Dioxide Pending
BUN Pending
Creatinine Pending
Glucose Pending
Calcium Pending
Vital Signs:
Vital Signs
Temp Pulse Resp BP Pulse Ox
98.3 F 67 18 137/71 97
06/19/24 23:46 06/19/24 23:46 06/19/24 23:46 06/19/24 23:46 06/19/24 23:46
I&O
06/19/24 06/20/24 06/21/24
06:59 06:59 06:59
Intake Total 1080 / 1079
Output Total 775 / 775
Balance 1080 / 1080 1295 / 1295
[2024-06-20 07:19] LABS: Glucose - Point of Care 123 mg/dl (70-99)
[2024-06-20] MEDS: NOVOLOG FLEXPEN-MODERATE RESISTANCE SC ×3 (07:29→18:28)
[2024-06-20 07:35] LABS: Hematocrit 38.1 % (39.0-52.0); Hemoglobin 12.6 g/dL (13.0-18.0); Mean Corp Hgb Conc. 33.1 g/dL (33.0-37.0); Mean Corpuscular Hgb 28.9 pg (27.0-31.0); Mean Corpuscular Volume 87.4 fL (80.0-94.0); Mean Platelet Volume 10.1 fL (7.4-10.4); Platelet Count 238 10^3/uL (130-400); Red Blood Cell Count 4.36 10^6/uL (4.70-6.10); Red Cell Dist. Width 12.5 % (11.5-14.5); White Blood Cell Count 8.8 10^3/uL (4.8-10.8)
[2024-06-20 07:55] VITALS: BP 155/70
[2024-06-20] MEDS: COZAAR 100 MG PO (08:07)
[2024-06-20] MEDS: NEURONTIN 200 MG PO ×3 (08:07→22:02)
[2024-06-20] MEDS: NOVOLOG FLEXPEN 4 UNITS SC ×3 (08:07→18:27)
[2024-06-20] MEDS: GLUCOPHAGE 850 MG PO ×2 (08:08→18:22)
[2024-06-20] MEDS: VALIUM 2 MG PO (08:09)
[2024-06-20 08:19] LABS: Blood Urea Nitrogen 21 mg/dl (9-20); Calcium 9.3 mg/dl (8.4-10.2); Carbon Dioxide 30 mmol/L (22-30); Chloride 105 mmol/L (98-107); Estimated Creatinine Clearance 77 ml/min; Glucose 138 mg/dl (70-99); Magnesium 2.1 mg/dl (1.6-2.3); Phosphorus 3.2 mg/dl (2.5-4.5); Sodium 140 mmol/L (135-145); eGFR > 60.00
[2024-06-20 11:37] VITALS: BP 131/66; BP 89/46; PULSE 72; O2SAT 95
[2024-06-20 11:38] VITALS: BP 131/66; BP 89/46; PULSE 64; O2SAT 97
[2024-06-20] MEDS: NSS 1000 IV ×2 (12:07→22:02)
[2024-06-20 12:13] LABS: Glucose - Point of Care 97 mg/dl (70-99)
[2024-06-20 12:42] LABS: Glucose - Point of Care 123 mg/dl (70-99)
[2024-06-20 15:44] VITALS: BP 127/65
[2024-06-20 17:39] LABS: Iron 53 ug/dl (49-181)
[2024-06-20 17:49] LABS: Percent Saturation 22 % (20-50); Total Iron Binding Capacity 235 ug/dl (261-462)
[2024-06-20 18:06] LABS: Glucose - Point of Care 127 mg/dl (70-99)
[2024-06-20 18:56] LABS: Folate 19.3 ng/ml (2.76-20)
[2024-06-20 21:24] LABS: Glucose - Point of Care 103 mg/dl (70-99)
[2024-06-20] MEDS: LANTUS 0.2 UNITS SC (22:02)
[2024-06-20] MEDS: VALIUM 5 MG PO (22:02)
[2024-06-20 23:44] VITALS: BP 141/68
--- NOTE | 2024-06-21 06:28 | W.PN.HOSP.TC ---
Today's Communication/Plan
-
Medically stable for discharge pending SNF rehab placement.
Assessment / Plan
Assessment / Plan
Physical Exam
General: no acute distress, appears comfortable at this time though patient's report is contrary to appearance
CVS: S1-S2 normal
Chest: CTA B/L
Abdomen: Soft, NT / Bowel sounds present
Extremities: No edema, normal pulses
YOUTH DIRECTOR: AOx3
Psych: patient reports insomnia general anxiety. Seems to be obsessively concern regarding dehydration though labs vitals exam do not correlate with subjective concern
61 with diabetes and hypertension with weakness dizziness was found to have bradycardia hyper pressure and also sugars over 800
He C/O Mild dizziness - likely from sugars . Check orthostatics
# Diabetes-not on any meds at present
Glucose was over 800 on admission consistent with hyperosmolar hyperglycemic state
Diabetic education and dietary consultation
Lantus and NovoLog insulin. 20 units and 4 units AC respectively
Hemoglobin A1c 14.6
Accu-Cheks and sliding scale coverage
# Hypertension with hypertensive urgency on admission
Telmisartan to be continued
It appears patient was taking as needed
Pseudoephedrine could have also raise her blood pressure as outpatient
BP well controlled at this time with Losartan 100 mg daily
#patient reporting muscle spasticity, generalized anxiety, insomnia
#seems obsessively concerned with dehydration
IVF completed
started valium 2mg BID switched to 5 mg HS, appears to be tolerating well
# Pseudo hyponatremia secondary to hyperglycemia- resolved
# Elevated LFTs- resolved
# T inversion in inferior leads. Troponin negative . echo unremarkable
# Nicotine dependency with vaping cessation counseling
# Neuropathy likely diabetic vs sciatica-added Neurontin titrated up to 300 mg TID
# History of migraines
PT/OT appreciated SNF rehab
ST eval cognitive assessment appreciated mild cognitive impairment MOCA 23/30 (normal 26/30 or greater)
# DVT prophylaxis-Lovenox
# Full code
Medically stable for discharge pending SNF rehab placement
I spent a total of 40 minutes with the patient or on the floor. More than 50% of this time involved counseling and coordination of care.
Anticipated Discharge: 24 - 48 hours
Subjective/Interval History
-
Date of Service: June 21, 2024
Overall appears symptomatically improved through intermittent burning sensation spasticity persists per patient.
Objective Data
-
Labs:
Laboratory Results
06/21/24
06:00
WBC Pending
Hgb Pending
Hct Pending
Plt Count Pending
Sodium Pending
Potassium Pending
Chloride Pending
Carbon Dioxide Pending
BUN Pending
Creatinine Pending
Glucose Pending
Calcium Pending
Vital Signs:
Vital Signs
Temp Pulse Resp BP Pulse Ox
97.8 F 63 18 141/68 98
06/20/24 23:44 06/20/24 23:44 06/20/24 23:44 06/20/24 23:44 06/20/24 23:44
I&O
06/19/24 06/20/24 06/21/24
06:59 06:59 06:59
Intake Total 1080 / 1080 2069 / 2069 2340 / 2340
Output Total 775 / 775
Balance 1080 / 1080 1295 / 1295 2340 / 2340
[2024-06-21 07:15] LABS: Glucose - Point of Care 109 mg/dl (70-99)
[2024-06-21 07:43] LABS: Hematocrit 36.1 % (39.0-52.0); Hemoglobin 12.2 g/dL (13.0-18.0); Mean Corp Hgb Conc. 33.8 g/dL (33.0-37.0); Mean Corpuscular Hgb 28.6 pg (27.0-31.0); Mean Corpuscular Volume 84.7 fL (80.0-94.0); Platelet Count 247 10^3/uL (130-400); Red Blood Cell Count 4.26 10^6/uL (4.70-6.10); White Blood Cell Count 7.5 10^3/uL (4.8-10.8)
[2024-06-21 07:45] VITALS: BP 127/64
[2024-06-21] MEDS: NSS 1000 IV (08:33)
[2024-06-21] MEDS: GLUCOPHAGE 850 MG PO ×2 (08:34→17:51)
[2024-06-21] MEDS: NEURONTIN 200 MG PO ×2 (08:34→16:31)
[2024-06-21] MEDS: COZAAR 100 MG PO (08:34)
[2024-06-21] MEDS: NOVOLOG FLEXPEN 4 UNITS SC ×3 (08:42→17:51)
[2024-06-21] MEDS: NOVOLOG FLEXPEN-MODERATE RESISTANCE SC ×2 (08:43→12:25)
[2024-06-21 08:46] LABS: Blood Urea Nitrogen 17 mg/dl (9-20); Carbon Dioxide 26 mmol/L (22-30); Chloride 105 mmol/L (98-107); Estimated Creatinine Clearance 77 ml/min; Glucose 110 mg/dl (70-99); Magnesium 1.8 mg/dl (1.6-2.3); Phosphorus 3.2 mg/dl (2.5-4.5); Potassium 4.5 mmol/L (3.5-5.1); Sodium 140 mmol/L (135-145); eGFR > 60.00
--- NOTE | 2024-06-21 09:54 | CM ---
LYNETTE called [facility] to check bed availability for [facility]. Await response; [facility] is checking on bed availability and will need to review financial situation. Per brother, pt has no assets or income.
[2024-06-21 12:23] LABS: Glucose - Point of Care 83 mg/dl (70-99)
--- NOTE | 2024-06-21 13:45 | CM ---
LYNETTE spoke with Yon today regarding discharge. I advised that we are looking for availability with possible facilities of [facility], [facility] and [facility]. Yon is agreeable to any of these facilities.
[facility] is working with the above facilities to identify where a bed may be available. Yon did state that the sherrif sale of his home was in April 2022; He has a checking account for his SNAP benefits, but no other assets.
CM to continue to follow for discharge to SNF/LTC.
--- NOTE | 2024-06-21 14:47 | PTOTSP ---
SPEECH THERAPY COGNITIVE COMMUNICATION EVALUATION:
Pt exhibits mild cognitive communication impairments characterized by deficits in the areas of: insight, STM, impulsivity, judgement, attention, and ability to complete executive functioning tasks. MOCA version 8.1 assessment was administered to pt.
Pt achieved a score of 23/30, which is slightly below the level of normal limits (greater than or equal to 26/30). Subscores as follows: Visuospatial/executive functionin/5; Namin/3; Attention: 4/6; Language: 2/2; Abstraction: 1/2; STM: 3/5
(06/08 MIS score); Orientation: 6/6.
Cognitive communication therapy is indicated at a trial level to facilitate higher-level cognitive communication skills, assess patient's baseline/current level of functioning, and assist with discharge planning. Discussed with pt, who was in
agreement with plan of care.
[2024-06-21 15:12] VITALS: BP 131/86
--- NOTE | 2024-06-21 16:33 | CM ---
[facility] for transfer. CM contacting [facility], pt's insurance for SNF authorization for transfer.
SHANNAN
Dr. Gomez
Multpile transfers between offices at [facility]; 1) transportation line 2) Service Coordination 3) [place] 4) [facility] and 5) Provider Services ([facility]).
After providing pt's insurance and personal identifiers to each of the above departments, I was advised that the Clinical Services department is now closed, so I will have to call again in AM. Clinical Services phone number is [phone].
CM to follow up in AM.
--- NOTE | 2024-06-21 16:52 | PTCARENOTE ---
Received patient this am AAOx3. Pt anxious intermittently. Tolerated diet well. Pt complained of neuropathy symptoms. Medicated with schedule Neurontin. Made patient comfortable. Cont to assess patient status.
[2024-06-21 17:08] LABS: Glucose - Point of Care 152 mg/dl (70-99)
[2024-06-21] MEDS: NOVOLOG FLEXPEN-MODERATE RESISTANCE 5 UNITS SC (17:52)
[2024-06-21 21:27] LABS: Glucose - Point of Care 94 mg/dl (70-99)
[2024-06-21] MEDS: VALIUM 5 MG PO (21:29)
[2024-06-21] MEDS: NEURONTIN 300 MG PO (21:29)
[2024-06-21] MEDS: LANTUS 0.2 UNITS SC (22:46)
[2024-06-21 23:55] VITALS: BP 123/62
[2024-06-22 02:55] LABS: Glucose - Point of Care 112 mg/dl (70-99)
[2024-06-22 07:30] VITALS: BP 133/57
[2024-06-22 07:30] LABS: Glucose - Point of Care 99 mg/dl (70-99)
--- NOTE | 2024-06-22 07:45 | W.PN.HOSP.TC ---
Today's Communication/Plan
-
discharge
Assessment / Plan
Assessment / Plan
Physical Exam
General: no acute distress, appears comfortable at this time
CVS: S1-S2 normal
Chest: CTA B/L
Abdomen: Soft, NT / Bowel sounds present
Extremities: No edema, normal pulses
SECOND WORKER: AOx3
Psych: Appears more calm compared to prior but still somewhat anxious
61 with diabetes and hypertension with weakness dizziness was found to have bradycardia hyper pressure and also sugars over 800
He C/O Mild dizziness - likely from sugars . Check orthostatics
# Diabetes-not on any meds at present
Glucose was over 800 on admission consistent with hyperosmolar hyperglycemic state
Diabetic education and dietary consultation
Lantus and NovoLog insulin. 20 units and 4 units AC respectively
Hemoglobin A1c 14.6
Accu-Cheks and sliding scale coverage
# Hypertension with hypertensive urgency on admission
Telmisartan to be continued
It appears patient was taking as needed
Pseudoephedrine could have also raise her blood pressure as outpatient
BP well controlled at this time with Losartan 100 mg daily
#patient reporting muscle spasticity, generalized anxiety, insomnia
#seems obsessively concerned with dehydration
IVF completed
started valium 2mg BID switched to 5 mg HS, appears to be tolerating well
#Chronic Nasal Congestion possibly allergic rhinitis
started on claritin
outpatient ENT follow up recommended
# Pseudo hyponatremia secondary to hyperglycemia- resolved
# Elevated LFTs- resolved
# T inversion in inferior leads. Troponin negative . echo unremarkable
# Nicotine dependency with vaping cessation counseling
# Neuropathy likely diabetic vs sciatica-added Neurontin titrated up to 300 mg TID
# History of migraines
PT/OT appreciated SNF rehab
ST al cognitive assessment appreciated mild cognitive impairment MOCA 23/30 (normal 26/30 or greater)
# DVT prophylaxis-Lovenox
# Full code
Medically stable for discharge SNF rehab with outpatient follow up recommendations.
Total Time Preparing Discharge ___40____ minutes including examination of the patient, summary of the hospital stay, instructions for continuing care to all relevant caregivers; and preparation of discharge records, prescriptions, and referral
forms if necessary.
Anticipated Discharge: Today
Subjective/Interval History
-
Date of Service: June 22, 2024
Seen and examined at bedside in no acute distress resting comfortably in bed. Reports nasal congestion. Pain overall improved.
Objective Data
-
Labs:
Laboratory Results
06/22/24
06:54
WBC Pending
Hgb Pending
Hct Pending
Plt Count Pending
Sodium Pending
Potassium Pending
Chloride Pending
Carbon Dioxide Pending
BUN Pending
Creatinine Pending
Glucose Pending
Calcium Pending
Vital Signs:
Vital Signs
Temp Pulse Resp BP Pulse Ox
98.2 F 58 20 123/62 99
06/21/24 23:55 06/21/24 23:55 06/21/24 23:55 06/21/24 23:55 06/21/24 23:55
I&O
06/21/24 06/22/24 06/23/24
06:59 06:59 06:59
Intake Total 2340 / 2340 480 / 480
Output Total 1375 / 1375
Balance 965 / 965 480 / 480
[2024-06-22 08:13] LABS: Hematocrit 36.6 % (39.0-52.0); Hemoglobin 12.2 g/dL (13.0-18.0); Mean Corp Hgb Conc. 33.3 g/dL (33.0-37.0); Mean Corpuscular Hgb 28.4 pg (27.0-31.0); Mean Corpuscular Volume 85.3 fL (80.0-94.0); Mean Platelet Volume 10.1 fL (7.4-10.4); Platelet Count 272 10^3/uL (130-400); Red Blood Cell Count 4.29 10^6/uL (4.70-6.10); Red Cell Dist. Width 12.8 % (11.5-14.5); White Blood Cell Count 8.1 10^3/uL (4.8-10.8)
[2024-06-22 08:46] LABS: Blood Urea Nitrogen 15 mg/dl (9-20); Calcium 9.3 mg/dl (8.4-10.2); Carbon Dioxide 29 mmol/L (22-30); Chloride 104 mmol/L (98-107); Estimated Creatinine Clearance 77 ml/min; Glucose 100 mg/dl (70-99); Magnesium 1.9 mg/dl (1.6-2.3); Phosphorus 3.6 mg/dl (2.5-4.5); Potassium 4.6 mmol/L (3.5-5.1); Sodium 140 mmol/L (135-145); eGFR > 60.00
[2024-06-22] MEDS: NOVOLOG FLEXPEN 4 UNITS SC ×2 (09:53→11:48)
[2024-06-22] MEDS: NEURONTIN 300 MG PO (09:54)
[2024-06-22] MEDS: GLUCOPHAGE 850 MG PO (09:54)
[2024-06-22] MEDS: NOVOLOG FLEXPEN-MODERATE RESISTANCE SC ×2 (09:54→11:46)
[2024-06-22] MEDS: COZAAR PO (09:57)
[2024-06-22 11:42] LABS: Glucose - Point of Care 131 mg/dl (70-99)
[2024-06-22] MEDS: CLARITIN 10 MG PO (11:48)
--- NOTE | 2024-06-22 14:27 | CM ---
TC to [facility] [phone]
Spoke with Dean, member approved for skilled rehab.
Start date 06/22/24, LCD 06/27/25, NRD 06/28/25 via phone call to [phone].
[facility] insurance Auth # [id number]
Auth provided to [facility] for transfer today.
[facility]
Report# [phone]
--- NOTE | 2024-06-22 14:58 | CM ---
LYNETTE spoke with Jann today at bedside to make him aware that his insurance has authorized transfer to [facility] today. I called and left a voicemail for Cameron, Jann's brother, to make him aware of transfer plans and asked that he call
the unit to discuss transportation.
Await return call from Jann's brother regarding transport to [facility].
[facility] Report: [phone]
[facility]
[2024-06-22 15:15] VITALS: BP 153/63
--- NOTE | 2024-06-22 15:41 | W.DCSUMMARY ---
Discharge Summary
Discharge Data
Date of Admission: 06/15/24
Date of Discharge: 06/22/24
-
Pending Results: No
Discharge Plan
-
Patient Disposition: Intermediate/SNF
Discharge Diagnosis/Procedures: Diabetes
Hyperosmolar state
Neuropathy likely diabetes and sciatica contributing
Hypertension
Chronic Nasal Congestion
Nicotine Dependence
Anxiety
Muscle spasticity
Condition: Fair
Diet: Diabetic, Carb Controlled
Activity: As tolerated
Driving Restrictions: As prior to admission
Bathing Restrictions: None
Other Services: PT, OT and ST
Activity Restrictions/Additional Instructions:
Please follow up with a primary care provider in 1 week of discharge and ENT in 2-4 weeks of discharge
diazepam 5 mg tablet 5 mg PO HSPRN PRN muscle spasm/anxiety 7 days #7 tabs
fluticasone propionate 50 mcg/actuation nasal spray,suspension (Flonase Allergy Relief) 2 spray intranasal DAILY 7 days for allergic rhinitis
gabapentin 300 mg capsule 300 mg PO TID for neuropathy diabetes and sciatica likely contributing
insulin aspart U-100 100 unit/mL (3 mL) subcutaneous pen 4 unit (0.04 mL) SC AC for diabetes
insulin glargine 100 unit/mL (3 mL) subcutaneous pen (Lantus Solostar U-100 Insulin) 20 unit (0.2 mL) SC HS For diabetes
loratadine 10 mg tablet 10 mg PO DAILY 7 days for nasal congestion allergic rhinitis
losartan 100 mg tablet 100 mg PO DAILY for hypertension
metformin 850 mg tablet 850 mg PO BID@0800,1700 for diabetes
Please take medications as prescribed/recommended and follow up with primary care provider and/or other healthcare provider involved in your care for refills and/or further adjustment to your medication regimen as necessary
Referrals:
NONE,* [Family Provider] -
Mehrdad Frederick MD [Active] - in two to four weeks (Chronic Nasal Congestion )
Prescriptions:
New
metformin 850 mg Tablet
850 mg PO BID@0800,1700 30 Days Qty: 60 0RF
gabapentin 300 mg Capsule
300 mg PO TID 30 Days Qty: 90 0RF
losartan 100 mg Tablet
100 mg PO DAILY 30 Days Qty: 30 0RF
loratadine 10 mg Tablet
10 mg PO DAILY 7 Days Qty: 7 0RF
diazepam 5 mg Tablet
5 mg PO HSPRN PRN (Reason: muscle spasm/anxiety) 7 Days Qty: 7 0RF
insulin aspart U-100 100 unit/mL (3 mL) Insulin Pen
4 unit SC AC 30 Days Qty: 3.6 0RF
insulin glargine [Lantus Solostar U-100 Insulin] 100 unit/mL (3 mL) insulin pen
20 unit SC HS 30 Days Qty: 6 0RF
fluticasone propionate [Flonase Allergy Relief] 50 mcg/actuation spray,suspension
2 spray intranasal DAILY 7 Days Qty: 16 0RF
Rx Instructions:
2 sprays each nostril daily
Discontinued
telmisartan 80 mg Tablet
80 mg PO DAILYPRN PRN (Reason: high blood pressure)
pseudoephedrine HCl [Sudafed] 30 mg Tablet
30 mg PO DAILYPRN PRN (Reason: post nasal drip)
Discharge Orders:
Discharge Patient (As Directed); Ordered 06/22/24
Ordered By: Jessie Jay
Discharge Date and Time
Print Language: KOSOVAN
== END 2024-06-22 16:44 | DRG 639 ==
LOC: 4 EAST ACU 15:53
PROVIDERS: Hospitalist; Nurse Practitioner Family; Physician Assistant; ADMITTING PHYSICIAN Hospitalist; ATTENDING PHYSICIAN Internal Medicine; EMERGENCY PHYSICIAN Emergency Medicine
DX: E11.00 Type 2 diabetes mellitus with hyperosmolarity without nonketotic hyperglycemic-hyperosmolar coma (NKHHC) (principal); E11.40 Type 2 diabetes mellitus with diabetic neuropathy, unspecified; I10 Essential (primary) hypertension; Z66 Do not resuscitate; I16.0 Hypertensive urgency; R00.1 Bradycardia, unspecified; M54.30 Sciatica, unspecified side; F17.290 Nicotine dependence, other tobacco product, uncomplicated; F41.9 Anxiety disorder, unspecified; Z91.199 Patient's noncompliance with other medical treatment and regimen due to unspecified reason
CPT/HCPCS: 71046; 80048; 80053; 81003; 82248; 82607; 82746; 82947; 82962; 83036; 83540; 83550; 83735; 84100; 84484; 85025; 85027; 92523; 93005; 93306; 96361; 96372; 96374; 97162; 97166; 99285

== ENCOUNTER 2024-07-24 11:46 | Emergency (ER) | payer OTHER, SELFPAY ==
[2024-07-24 11:51] VITALS: BP 156/76
[2024-07-24 11:55] LABS: Glucose - Point of Care 317 mg/dl (70-99)
--- NOTE | 2024-07-24 12:21 | ED.GENMED ---
History of Present Illness
General
Chief Complaint: Blood Sugar Problem
Time Seen by Provider: 07/24/24 12:09
History of Present Illness
History of Present Illness:
Patient presents to the emergency department with chronic complaints. Notes that he has been having dry skin for months. Also notes tingling in his feet. He was diagnosed with neuropathy and he is on gabapentin for this. He is also an
insulin-dependent diabetic. Notes that he ran out of test trips a few days ago. He has a primary doctor appointment coming up on Friday at 9 AM.
Phy Exam
Physical Exam
Physical Exam:
GENERAL APPEARANCE: Disheveled
EYES lids/conjunctiva normal
EARS/NOSE/THROAT Mucous membranes moist, poor dentition
HEAD/NECK normocephalic atraumatic, neck is supple.
RESPIRATORY respiratory effort normal, speaks in full sentences, no accessory muscle use. Lungs clear to auscultation without rhonchi, wheezes, rales
CARDIAC Regular rate and rhythm, no edema.
ABDOMINAL Soft, ND/NT. No pulsatile masses on exam, rebound tenderness, Mendez sign or pain over Mcburney's point.
MUSCLES/EXTREMITIES No abnormal range of motion, no swelling.
SKIN Warm, pink and dry. No rashes
NEUROLOGICAL Speech is clear and appropriate. Normal level of consciousness. 5/5 strength in all extremities.
PSYCH Normal mood and affect. Judgement/competence is appropriate
Course
Orders/Labs/Results
Orders:
Orders
07/24/24 12:21
0.9% Sodium Chloride 1000 ml [Nss] 1,000 ml IV BOLUS
07/24/24 12:48
Complete Blood Count/With Diff Urgent
Comprehensive Metabolic Panel Urgent
Urinalysis Reflex To Culture Urgent
Date Specimen was Collected: 07/24/24
Time Specimen was Collected: 12:26
07/24/24 13:33
Insulin Aspart Pen [Novolog Flexpen] See Dose Instructions SC AC ONE
07/24/24 13:35
Insulin Aspart [NOVOLOG vial] See Dose Instructions SC NOW STA
07/24/24 15:39
Case Management Consult ONCE
Case Management Consult: Discharge Planning
Abnormal Lab Results
07/24/24 07/24/24 07/24/24
11:53 12:48 15:30
MCHC 32.8 L g/dL
(33.0-37.0)
BUN 21 H mg/dl
(9-20)
Glucose 365 H mg/dl
(70-99)
Urine Glucose 3+ A
(Negative)
POC Glucose 317 H mg/dl 161 H mg/dl
(70-99) (70-99)
07/24/24
16:49
MCHC
BUN
Glucose
Urine Glucose
POC Glucose 66 L mg/dl
(70-99)
07/24/24 12:48
07/24/24 15:26
Vital Signs
Initial and Last Documented VS:
Initial Vital Signs
Temp Pulse Resp BP Pulse Ox
97.5 F 95 16 156/76 98
07/24/24 11:51 07/24/24 11:51 07/24/24 11:51 07/24/24 11:51 07/24/24 11:51
Last Documented Vital Signs
Temp Pulse Resp BP Pulse Ox
97.5 F 95 16 142/67 96
07/24/24 11:51 07/24/24 11:51 07/24/24 11:51 07/24/24 14:44 07/24/24 15:15
*Critical Care Note
Total Time (30-74mins, 75-104mins- exclusive of procedures): Not Applicable
ED Attending Note
ED Attending Note
ED Attending Note:
Hyperglycemia noted. Patient given subcutaneous dose of insulin with improvement in his blood sugar. Blood work without anion gap or evidence of DKA. He states that he has his insulin at home. Also with chronic neuropathy. He has a follow-up
appoint with his primary doctor in 2 days for this.
Case Management consulted for discharge planning given unstable housing situation. They are looking to set him up in a hotel
-
Portions of this chart may have been created with voice recognition software.� Occasional wrong word or��sound alike� substitutions may have occurred due to the inherent limitations of voice recognition software.
Discharge Plan
Departure
Patient Disposition: Home (Routine Discharge)
Date of Disposition: 07/24/24
Time of Disposition: 16:57
Patient with high blood pressure during this ER visit?: Yes
Discharge Problem:
Hyperglycemia, Hypertension, Neuropathy
Instructions: Type 2 Diabetes (DC), BLOOD PRESSURE
Prescriptions:
No Action
metformin 850 mg Tablet
850 mg PO BID@0800,1700 30 Days Qty: 60 0RF
gabapentin 300 mg Capsule
300 mg PO TID 30 Days Qty: 90 0RF
losartan 100 mg Tablet
100 mg PO DAILY 30 Days Qty: 30 0RF
loratadine 10 mg Tablet
10 mg PO DAILY 7 Days Qty: 7 0RF
diazepam 5 mg Tablet
5 mg PO HSPRN PRN (Reason: muscle spasm/anxiety) 7 Days Qty: 7 0RF
insulin aspart U-100 100 unit/mL (3 mL) Insulin Pen
4 unit SC AC 30 Days Qty: 3.6 0RF
insulin glargine [Lantus Solostar U-100 Insulin] 100 unit/mL (3 mL) insulin pen
20 unit SC HS 30 Days Qty: 6 0RF
fluticasone propionate [Flonase Allergy Relief] 50 mcg/actuation spray,suspension
2 spray intranasal DAILY 7 Days Qty: 16 0RF
Rx Instructions:
2 sprays each nostril daily
Referrals:
Rosemarie Arauz MD [Family Provider] -
Activity Restrictions/Additional Instructions:
please follow up with your primary doctor for workup and treatment of your chronic neuropathy
Interventions
Interventions:
*Risk Screen - Suicide Last Done: 07/24/24 11:51
*General Assessment Last Done: 07/24/24 12:00
*Neglect/Abuse Screening Last Done: 07/24/24 11:51
ED- Fall Risk Assessment Last Done: 07/24/24 12:00
ED- Neurological Assessment Last Done: 07/24/24 12:00
Discharge Date and Time
Print Language: DANISH
[2024-07-24] MEDS: NSS 1000 IV (12:49)
[2024-07-24 12:58] LABS: % Basophils 0.1 % (0-2); % Eosinophils 1.2 % (0-6); % Immature Granulocytes 0.3 % (0-0.5); % Lymphocytes 33.6 % (20.5-51.1); % Monocytes 7.6 % (1.7-9.3); % Neutrophils 57.2 % (42.2-75.2); Absolute Eosinophils 0.1 10^3/uL (0-0.7); Absolute Lymphocytes 2.3 10^3/uL (1.2-3.4); Absolute Monocytes 0.5 10^3/uL (0.1-0.6); Absolute Neutrophils 3.9 10^3/uL (1.4-6.5); Hematocrit 42.7 % (39.0-52.0); Mean Corp Hgb Conc. 32.8 g/dL (33.0-37.0); Mean Corpuscular Hgb 28.4 pg (27.0-31.0); Mean Corpuscular Volume 86.6 fL (80.0-94.0); Mean Platelet Volume 9.3 fL (7.4-10.4); Nucleated Red Blood Cells % 0 % (-); Platelet Count 245 10^3/uL (130-400); Red Blood Cell Count 4.93 10^6/uL (4.70-6.10); White Blood Cell Count 6.8 10^3/uL (4.8-10.8)
[2024-07-24 13:30] LABS: ALT (SGPT) 23 U/L (0-50); AST (SGOT) 21 U/L (17-59); Albumin 4.2 g/dl (3.5-5.0); Alkaline Phosphatase 113 U/L (38-126); Blood Urea Nitrogen 21 mg/dl (9-20); Calcium 9.3 mg/dl (8.4-10.2); Carbon Dioxide 26 mmol/L (22-30); Chloride 99 mmol/L (98-107); Glucose 365 mg/dl (70-99); Potassium 4.4 mmol/L (3.5-5.1); Sodium 137 mmol/L (135-145); Total Bilirubin 0.8 mg/dl (0.2-1.3); Total Protein 6.9 g/dl (6.3-8.2); eGFR > 60.00
[2024-07-24] MEDS: NOVOLOG vial 7 UNITS SC (14:32)
[2024-07-24 14:44] VITALS: BP 142/67
[2024-07-24 15:01] LABS: Urine Albumin Negative (Neg - Trace); Urine Bilirubin Negative (Negative); Urine Character Clear (Clear); Urine Color Yellow; Urine Glucose 3+ (Negative); Urine Ketone Negative (Negative); Urine Leukocyte Negative (Negative); Urine Nitrite Negative (Negative); Urine Occult Blood Negative (Negative); Urine Urobilinogen Negative (Neg - 1+)
[2024-07-24 15:31] LABS: Glucose - Point of Care 161 mg/dl (70-99)
--- NOTE | 2024-07-24 16:00 | CM ---
Addendum entered by Nely Hawkins RN 07/24/24 16:55:
CM received notice from [facility] that they are able to provide patient with two nights at the [facility]. As per [employer] volunteer, patient is well known to them and they will follow up to assist with housing. CM updated patient. Patient stated that
he needs a doctor and feels 'shakey'.
CM updated bedside RN.
CM will refer patient to [facility].
Addendum entered by Nely Hawkins RN 07/24/24 16:28:
CM spoke with [facility] and they will confirm if they can assist patient. CM will await contact.
CM spoke with nursing public area supervisor at [facility]. She was unable to provide discharge planning history for patient.
Original Note:
CM met with patient. CM reviewed medical records. Patient is medically ready for discharge from emergency room. CM noted that patient was discharged from [facility]. Patient stated that he was just 'kicked out'. Patient stated that he was
discharged to a hotel and has had his friends fund his hotel rooms. He stated that he is out money and his friends can no longer support his alf.
CM left message for Catrachita at [facility] for collateral history.
CM left message for [facility] to confirm possible alf.
[2024-07-24 16:51] LABS: Glucose - Point of Care 66 mg/dl (70-99)
[2024-07-24 17:40] VITALS: BP 138/82
== END 2024-07-24 17:40 | disposition home or self-care (01) ==
LOC: EMR 11:46
PROVIDERS: EMERGENCY PHYSICIAN Emergency Medicine; FAMILY PHYSICIAN Hospitalist
DX: E11.65 Type 2 diabetes mellitus with hyperglycemia (principal); I10 Essential (primary) hypertension; G62.9 Polyneuropathy, unspecified
CPT/HCPCS: 99284; 96360; 96372; 80053; 81003; 82962; 85025